=== PATIENT | female | born 1940 | race Caucasian/White ===

== ENCOUNTER → 2024-04-15 08:53 | Outpatient (REF) | payer MEDICARE, OTHER, SELFPAY | LOC: HWRCS 08:53 | PROVIDERS: ATTENDING PHYSICIAN Internal Medicine Interventional Cardiology; FAMILY PHYSICIAN Internal Medicine | DX: I35.0 Nonrheumatic aortic (valve) stenosis (principal) | CPT/HCPCS: 93306 ==

== ENCOUNTER 2024-05-02 06:08 | Inpatient (IN) | payer MEDICARE, OTHER, SELFPAY ==
[2024-04-18 11:39] LABS: Hematocrit 40.4 % (37.0-47.0); Hemoglobin 13.1 g/dL (12.0-16.0); Mean Corp Hgb Conc. 32.4 g/dL (33.0-37.0); Mean Corpuscular Hgb 31.7 pg (27.0-31.0); Mean Corpuscular Volume 97.8 fL (81.0-99.0); Mean Platelet Volume 9.9 fL (7.4-10.4); Platelet Count 370 10^3/uL (130-400); Red Blood Cell Count 4.13 10^6/uL (4.20-5.40); Red Cell Dist. Width 13.2 % (11.5-14.5); White Blood Cell Count 7.6 10^3/uL (4.8-10.8)
[2024-04-18 12:38] LABS: ALT (SGPT) 22 U/L (0-35); AST (SGOT) 20 U/L (14-36); Albumin 4.6 g/dl (3.5-5.0); Alkaline Phosphatase 108 U/L (38-126); Blood Urea Nitrogen 33 mg/dl (7-17); Calcium 9.8 mg/dl (8.4-10.2); Carbon Dioxide 26 mmol/L (22-30); Chloride 101 mmol/L (98-107); Glucose 78 mg/dl (70-99); Sodium 137 mmol/L (135-145); Total Bilirubin 0.6 mg/dl (0.2-1.3); eGFR 55.21
[2024-04-18 13:07] LABS: Glycohemoglobin (HgbA1c) 5.4 % (4.0-5.6)
[2024-04-18 14:23] VITALS: BMI 22.9
[2024-04-18 14:45] VITALS: BMI 22.9
--- NOTE | 2024-04-23 10:09 | VNURNOTE ---
Chart reviewed. Rec'ed update via T.T. from Chastity Persaud that patient will most likely need home PT, VN after DC. [facility] referral placed in [facility]. Patient will have a CM during hospital admission to further assess DC dispo. Liaison will
follow up after surgery.
[2024-05-02] VITALS (12 sets, daily range): BP systolic 121–173; BP diastolic 44–72; PULSE 57; O2SAT 91; BMI 22.9
[2024-05-02] MEDS: TYLENOL 650 MG PO ×4 (06:36→23:53)
[2024-05-02] MEDS: BACTROBAN NASAL 1 GRAM NASAL (06:38)
[2024-05-02] MEDS: CELEBREX 200 MG PO (06:40)
[2024-05-02] MEDS: NORMOSOL-R/PLASMALYTE-A 1000 IV ×2 (06:48→10:22)
--- NOTE | 2024-05-02 07:34 | PTCARENOTE ---
Patients upset that he was not brought in sooner. He was brought in at 0700 after RN was done getting patient ready. Patient had to go to the bathroom twice and that held up getting patient ready. Also MD had to be called back to julio
patient. Visitor told RN passing by that he wanted to come in but patients RN (Tracie) was already on the way out to bring him in. Will monitor patient.
[2024-05-02] MEDS: ROXICODONE 5 MG PO ×3 (09:33→22:07)
[2024-05-02] MEDS: IMDUR (EXTENDED RELEASE) PO (10:23)
[2024-05-02] MEDS: VITAMIN D3 (cholecalciferol) 25 MCG PO (10:44)
[2024-05-02] MEDS: SYNTHROID 125 MCG PO (10:44)
[2024-05-02] MEDS: CYMBALTA DELAYED RELEASE 60 MG PO (10:44)
[2024-05-02] MEDS: LAMICTAL 50 MG PO ×2 (10:45→16:11)
--- NOTE | 2024-05-02 12:07 | W.PN.ORTHO ---
Today's Communication / Plan
-
D/c when clinically stable.
Assessment
.
Distal Motor Intact: Yes
Dressing:
Clean, dry and intact.
Assessment:
L knee OA s/p L TKA w/ Dr Galeano 05/02/24
DVT prophylaxis - ASA, b/l venous foot pumps
HTN - + parameters - monitor BP
Non-obstructive CAD per cardiac cath 2018
Transient SVT during cath
- Monitor on tele
- Continue Verapamil
- Continue ASA but at 325 mg dosing x4 weeks for blood clot prevention
Asthma, mild and intermittent, and chronic BASS - monitor O2
- Resume inhaler
- IS
Mild renal insufficiency per pre-operative labs
Ulcerative colitis, in remission
- Minimize NSAIDs
Chronic constipation - add MOM HS to post-surgical bowel regimen of Colace and Senna
Ambulatory dysfunction with history of falls - on fall precautions
Dyslipidemia
First-degree AV block
Mild to moderate valvular disease with associated murmur
Venous varicosities
Remote migraines
Lumbar stenosis
Hypothyroidism
Skin cancer, status post excision
Anxiety
Depression
Osteopenia
Insomnia
Plan
.
Surgery / Date: L TKA w/ Dr Galeano 05/02/24
DVT Prophylaxis: Aspirin
Activity:
Out of bed.
PT/OT
Discharge Plan: Home w/ VN
Subjective
.
.:
Patient resting comfortably in bed.
L knee pain minimal at present.
Feels overall well. Denies new significant complaints.
Vital Signs and Labs
.
Vital Signs and Labs:
Lab Results
04/18/24 10:07
04/18/24 10:07
Temp Pulse Resp BP Pulse Ox
97.9 F 57 16 141/50 95
05/02/24 11:00 05/02/24 11:00 05/02/24 11:00 05/02/24 11:00 05/02/24 11:00
Physical Exam
-
HEENT: No pallor, cyanosis, or jaundice. Throat clear.
NECK: Supple. No JVD.
RESPIRATORY: Lungs clear to auscultation.
CVS: S1, S2 normal. RRR.
ABDOMEN: Soft, non-tender. No distension.
EXTREMITIES: Strength equal, no calf pain with palpation/dorsiflexion. Calves soft.
INDEPENDENT CROP CONSULTANT: AOx3. No focal deficits. enrobing machine operator grossly intact
[2024-05-02] MEDS: TYLENOL PO (12:30)
[2024-05-02] MEDS: ANCEF 5 IV ×2 (16:11→22:07)
[2024-05-02] MEDS: ASPIRIN 325 MG PO (16:55)
--- NOTE | 2024-05-02 18:59 | PTCARENOTE ---
Pt answered 'yes' to 'have you ever attempted suicide in your lifetime?' Stated she attempted in her 20s. All other questions were answered no. Dr. Galeano notified.
[2024-05-02] MEDS: BACTROBAN 2% OINTMENT 1 APPLIC NASAL (20:06)
[2024-05-02] MEDS: COLACE 100 MG PO (20:07)
[2024-05-02] MEDS: DECADRON 4 MG PO (20:07)
[2024-05-02] MEDS: SENOKOT 17.2 MG PO (20:07)
[2024-05-02] MEDS: KLONOPIN 0.5 MG PO (21:25)
[2024-05-02] MEDS: PEPCID 20 MG PO (21:25)
[2024-05-02] MEDS: MILK OF MAGNESIA 30 ML PO (21:26)
[2024-05-02] MEDS: LAMICTAL 300 MG PO (21:26)
[2024-05-02] MEDS: CYMBALTA DELAYED RELEASE 30 MG PO (21:26)
[2024-05-02] MEDS: CALAN EXTENDED RELEASE 360 MG PO (21:26)
[2024-05-03] VITALS (7 sets, daily range): BP systolic 119–141; BP diastolic 42–56; PULSE 63–67; O2SAT 92–93
[2024-05-03] MEDS: DILAUDID 0.5 MG IV (01:26)
[2024-05-03] MEDS: TYLENOL 650 MG PO ×2 (03:29→13:02)
[2024-05-03] MEDS: SYNTHROID 125 MCG PO (05:35)
--- NOTE | 2024-05-03 07:30 | W.PN.ORTHO ---
Today's Communication / Plan
-
Plan for discharge home today with VN and home PT
Assessment
.
Distal Motor Intact: Yes
Dressing:
Clean, dry and intact.
Assessment:
Doing well s/p LTKR
Plan
.
Surgery / Date: L TKA w/ Dr Galeano 05/02/24
DVT Prophylaxis: Aspirin
Activity:
Out of bed.
PT/OT
Discharge Plan: Home w/ VN
Subjective
.
.:
Patient resting comfortably. Working on ROM. Comfortable
Vital Signs and Labs
.
Vital Signs and Labs:
Lab Results
04/18/24 10:07
04/18/24 10:07
Temp Pulse Resp BP Pulse Ox
97.9 F 78 17 141/56 90
05/03/24 03:25 05/03/24 03:25 05/03/24 03:25 05/03/24 03:25 05/03/24 03:25
Non-invasive Hgb result: 13.2
Physical Exam
-
Pulm: nonlabored
CV: regular
Ext: Dressing changed and no active draiange. Calf soft. NVI distally. Able to fully extend and flex to 90 degrees.
--- NOTE | 2024-05-03 08:27 | W.PN.ORTHO ---
Today's Communication / Plan
-
Await PT and OT recs.
D/c later today if remaining clinically stable.
Pt would prefer VN services through [facility] if possible.
Assessment
.
Distal Motor Intact: Yes
Dressing:
Clean, dry and intact.
Assessment:
L knee OA s/p L TKA w/ Dr Galeano 05/02/24
DVT prophylaxis - ASA, b/l venous foot pumps
HTN - + parameters - BPs overall stable
Non-obstructive CAD per cardiac cath 2018
Transient SVT during cath
- Maintaining NSR on tele
- Continue Verapamil
- Continue ASA but at 325 mg dosing x4 weeks for blood clot prevention
Asthma, mild and intermittent, and chronic BASS - O2 stable on RA
- Resumed inhaler
- IS
Mild renal insufficiency per pre-operative labs
Ulcerative colitis, in remission
- Minimize NSAIDs
Chronic constipation - added MOM HS to post-surgical bowel regimen of Colace and Senna
Ambulatory dysfunction with history of falls - on fall precautions
Dyslipidemia
First-degree AV block
Mild to moderate valvular disease with associated murmur
Venous varicosities
Remote migraines
Lumbar stenosis
Hypothyroidism
Skin cancer, status post excision
Anxiety
Depression
Osteopenia
Insomnia
Plan
.
Surgery / Date: L TKA w/ Dr Galeano 05/02/24
DVT Prophylaxis: Aspirin
Activity:
Out of bed.
PT/OT
Discharge Plan: Home w/ VN
Subjective
.
.:
Patient resting comfortably in bed this AM.
L knee pain overall well controlled w/ current pain meds.
Denies any new significant complaints. Feels well.
Eager for potential d/c later today.
Vital Signs and Labs
.
Vital Signs and Labs:
Lab Results
04/18/24 10:07
04/18/24 10:07
Temp Pulse Resp BP Pulse Ox
98.1 F 70 16 129/55 96
05/03/24 07:51 05/03/24 07:51 05/03/24 07:51 05/03/24 07:51 05/03/24 07:51
Non-invasive Hgb result: 13.2
Physical Exam
-
HEENT: No pallor, cyanosis, or jaundice. Throat clear.
NECK: Supple. No JVD.
RESPIRATORY: Lungs clear to auscultation.
CVS: S1, S2 normal. RRR.�
ABDOMEN: Soft, non-tender. No distension.
EXTREMITIES: Strength equal, no calf pain with palpation/dorsiflexion. Calves soft.
BELT SPLICER: AOx3. No focal deficits. auto phone installer grossly intact
--- NOTE | 2024-05-03 08:34 | W.DS.TRANS ---
DC Summary - Watch [employer]
-
Discharge Instructions:
Sleep Apnea Risk Low
Discharge Diagnosis/Procedures L knee OA s/p L TKA w/ Dr Galeano 05/02/24
Diet Regular
Activity As tolerated,With Walker
Driving Restrictions Not until seen by your Dr
Bathing Restrictions OK to Shower
Other Services PT,VN
Wound Care Dressing to be removed 1 week post-surgery.
[place] to be removed 2 weeks at follow-up with
surgeon's office.
Instructions:
Stand-Alone Forms: Total Hip/Knee Replacement D/C
Changes to Home Medications: Yes
Discharge Medications:
DC Medications w/original date entered in [facility]
albuterol sulfate 90 mcg/actuation aerosol inhaler 2 puff inhalation 6XD PRN asthma 04/16/24
atorvastatin 20 mg tablet (Lipitor) 20 mg PO DAILY 04/16/24
biotin 1,000 mcg chewable tablet 1,000 mcg PO DAILY 04/16/24
cholecalciferol (vitamin D3) 25 mcg (1,000 unit) tablet (Vitamin D3) 25 mcg PO DAILY 04/16/24
clonazepam 0.5 mg tablet (Klonopin) 0.5 mg PO HS 04/16/24
duloxetine 30 mg capsule,delayed release (Cymbalta) 30 mg PO HS 04/16/24
duloxetine 60 mg capsule,delayed release (Cymbalta) 60 mg PO DAILY 04/16/24
lamotrigine 150 mg tablet (Lamictal) 300 mg PO HS 04/16/24
lamotrigine 25 mg tablet (Lamictal) 50 mg PO BID 04/16/24
levothyroxine 125 mcg tablet (Synthroid) 125 mcg PO DAILY 04/16/24
verapamil 360 mg 24 hr capsule,extended release 360 mg PO DAILY 04/16/24
mupirocin 2 % topical ointment 1 applic intranasal BID #1 tube 04/18/24
acetaminophen 500 mg tablet (Acetaminophen Extra Strength) 1,000 mg (2 x 500 mg) PO Q6H #60 tabs 05/02/24
aspirin 325 mg tablet 325 mg PO DAILY #30 tabs 05/02/24
dexamethasone 4 mg tablet 4 mg PO BID #5 tabs 05/02/24
docusate sodium 100 mg capsule 100 mg PO BID #30 caps 05/02/24
famotidine 20 mg tablet 20 mg PO HS #30 tabs 05/02/24
isosorbide mononitrate 30 mg tablet,extended release 24 hr 30 mg PO DAILY #30 tabs 05/02/24
lisinopril 10 mg tablet 10 mg PO DAILY #1 tab 05/02/24
magnesium hydroxide 400 mg/5 mL oral suspension (Milk of Magnesia) 30 ml PO HS #3,780 mL 05/02/24
ondansetron HCl 4 mg tablet 4 mg PO Q6H PRN nausea and vomiting #30 tabs 05/02/24
oxycodone 5 mg tablet 5 - 10 mg (1 - 2 x 5 mg) PO Q6H PRN moderate-severe pain #30 tabs 05/02/24
sennosides 8.6 mg tablet (Tracey-bjorn) 17.2 mg (2 x 8.6 mg) PO BID #30 tabs 05/02/24
Home Medication Changes
acetaminophen 500 mg tablet (Acetaminophen Extra Strength) 1,000 mg (2 x 500 mg) PO Q6H #60 tabs 05/02/24
aspirin 325 mg tablet 325 mg PO DAILY #30 tabs 05/02/24
dexamethasone 4 mg tablet 4 mg PO BID #5 tabs 05/02/24
docusate sodium 100 mg capsule 100 mg PO BID #30 caps 05/02/24
famotidine 20 mg tablet 20 mg PO HS #30 tabs 05/02/24
magnesium hydroxide 400 mg/5 mL oral suspension (Milk of Magnesia) 30 ml PO HS #3,780 mL 05/02/24
ondansetron HCl 4 mg tablet 4 mg PO Q6H PRN nausea and vomiting #30 tabs 05/02/24
oxycodone 5 mg tablet 5 - 10 mg (1 - 2 x 5 mg) PO Q6H PRN moderate-severe pain #30 tabs 05/02/24
sennosides 8.6 mg tablet (Tracey-bjorn) 17.2 mg (2 x 8.6 mg) PO BID #30 tabs 05/02/24
Pending Results: No
[2024-05-03] MEDS: TYLENOL PO (08:59)
[2024-05-03] MEDS: DECADRON 4 MG PO (08:59)
[2024-05-03] MEDS: LAMICTAL 50 MG PO (08:59)
[2024-05-03] MEDS: ASPIRIN 325 MG PO (08:59)
[2024-05-03] MEDS: VITAMIN D3 (cholecalciferol) 25 MCG PO (09:00)
[2024-05-03] MEDS: SENOKOT 17.2 MG PO (09:00)
[2024-05-03] MEDS: ROXICODONE 5 MG PO (09:00)
[2024-05-03] MEDS: IMDUR (EXTENDED RELEASE) 30 MG PO (09:01)
[2024-05-03] MEDS: LIPITOR 20 MG PO (09:02)
[2024-05-03] MEDS: CYMBALTA DELAYED RELEASE 60 MG PO (09:02)
[2024-05-03] MEDS: COLACE 100 MG PO (09:03)
[2024-05-03] MEDS: BACTROBAN 2% OINTMENT 1 APPLIC NASAL (09:03)
--- NOTE | 2024-05-03 09:25 | CM ---
Addendum entered by Oksana Eid RN 05/03/24 09:51:
Correction: Home with [facility] VN.

Original Note:
Reviewed the chart notes and spoke with the patient at the bedside. IMM reviewed. The patient resides with spouse in a one story home with no steps to enter. The patient has a rolling walker, shower seat, shower rails, and a cane. The patient
reports no VN or SNF in past. The patient confirmed her [facility] choice [facility]. CM continues to be available to patient/family and is monitoring medical plan for needs at discharge.
Plan: Discharge to home with VN services. Patient's spouse to provide transportation.
--- NOTE | 2024-05-03 09:54 | VNURNOTE ---
[facility]OS[facility] liaison met with patient at bedside. She requested home PT with [facility]. She stated she arranged to have someone stay overnight with her once she is DC'ed. DOMINIQUE Tina notified of [facility] request.
--- NOTE | 2024-05-03 12:45 | PTCARENOTE ---
drowsy after this Am 2.5mg Oxycodone, needs cue for ADLs/RW. YARD SPOTTER was notified via PT after a discussion of pt status and suggestion of med change. IV bolus ordered.
[2024-05-03] MEDS: LAMICTAL 25 MG PO (13:01)
[2024-05-03] MEDS: NSS 250 IV (13:02)
--- NOTE | 2024-05-03 14:54 | W.PN.UPDATE ---
Update Note
Progress Note Update
Received word from PT earlier today that patient was groggy and needed a lot of repetition.
This was surprising considering how well she looked earlier when I assessed her this morning.
Grogginess likely 2* Oxycodone, Lamictal, and Cymbalta all taken together around 9 AM with lack of sleep overnight.
Pt was provided w/ a 250 cc NS bolus over 1 hour to flush out medications. Oxycodone was also switched to Tramadol as needed.
With these interventions, grogginess did improve. PT noted she was much more alert during her afternoon session.
Spoke to patient on phone who now feels comfortable w/ d/c today.
D/c today to home w/ [facility] VN services.
== END 2024-05-03 16:16 | disposition home health service (06) | DRG 470 ==
LOC: 2 SOUTH 06:08
PROVIDERS: ADMITTING PHYSICIAN Orthopaedic Surgery; FAMILY PHYSICIAN Internal Medicine; REFERRING PHYSICIAN Internal Medicine Interventional Cardiology
PROC: 0SRD0J9 Replacement of Left Knee Joint with Synthetic Substitute, Cemented, Open Approach (ICD-10-PCS; 2024-05-02)
DX: M17.12 Unilateral primary osteoarthritis, left knee (principal); I10 Essential (primary) hypertension; I25.10 Atherosclerotic heart disease of native coronary artery without angina pectoris; I35.1 Nonrheumatic aortic (valve) insufficiency; E78.5 Hyperlipidemia, unspecified; E03.9 Hypothyroidism, unspecified; F41.9 Anxiety disorder, unspecified; F32.A Depression, unspecified; I35.0 Nonrheumatic aortic (valve) stenosis; J45.20 Mild intermittent asthma, uncomplicated; K59.09 Other constipation; I44.0 Atrioventricular block, first degree; G47.00 Insomnia, unspecified; M85.80 Other specified disorders of bone density and structure, unspecified site; N28.9 Disorder of kidney and ureter, unspecified; Z79.82 Long term (current) use of aspirin; Z79.890 Hormone replacement therapy; Z79.899 Other long term (current) drug therapy; Z88.0 Allergy status to penicillin
CPT/HCPCS: 36415; 73560; 80053; 83036; 85027; 87070; 97110; 97116; 97162; 97167; 97535; C1713; C1776

== ENCOUNTER 2024-05-13 21:00 | Observation (INO) | payer MEDICARE, OTHER, SELFPAY ==
[2024-05-13 14:39] VITALS: BP 145/58
[2024-05-13 15:07] LABS: % Basophils 0.5 % (0-2); % Eosinophils 1.9 % (0-6); % Immature Granulocytes 0.9 % (0-0.5); % Lymphocytes 12.5 % (20.5-51.1); % Monocytes 17.7 % (1.7-9.3); % Neutrophils 66.5 % (42.2-75.2); Absolute Basophils 0.1 10^3/uL (0-0.2); Absolute Eosinophils 0.2 10^3/uL (0-0.7); Absolute Immature Granulocytes 0.1 10^3/uL (0-0.05); Absolute Lymphocytes 1.5 10^3/uL (1.2-3.4); Absolute Monocytes 2.1 10^3/uL (0.1-0.6); Absolute Neutrophils 7.9 10^3/uL (1.4-6.5); Hematocrit 35.7 % (37.0-47.0); Hemoglobin 11.8 g/dL (12.0-16.0); Mean Corp Hgb Conc. 33.1 g/dL (33.0-37.0); Mean Corpuscular Hgb 32.2 pg (27.0-31.0); Mean Corpuscular Volume 97.3 fL (81.0-99.0); Mean Platelet Volume 8.8 fL (7.4-10.4); Nucleated Red Blood Cells % 0 %; Platelet Count 378 10^3/uL (130-400); Red Blood Cell Count 3.67 10^6/uL (4.20-5.40); Red Cell Dist. Width 13.5 % (11.5-14.5); White Blood Cell Count 11.9 10^3/uL (4.8-10.8)
[2024-05-13 15:19] LABS: ALT (SGPT) 23 U/L (0-35); AST (SGOT) 20 U/L (14-36); Albumin 3.7 g/dl (3.5-5.0); Alkaline Phosphatase 124 U/L (38-126); Blood Urea Nitrogen 27 mg/dl (7-17); Calcium 9.6 mg/dl (8.4-10.2); Carbon Dioxide 28 mmol/L (22-30); Chloride 104 mmol/L (98-107); Glucose 113 mg/dl (70-99); Potassium 4.9 mmol/L (3.5-5.1); Sodium 138 mmol/L (135-145); Total Bilirubin 0.5 mg/dl (0.2-1.3); Total Protein 6.4 g/dl (6.3-8.2); eGFR > 60.00
--- NOTE | 2024-05-13 16:57 | ED.GENMED ---
History of Present Illness
General
Chief Complaint: Post Operative Problem(s)
Source: patient and spouse
Exam Limitations: none
Time Seen by Provider: 05/13/24 16:42
Nursing documentation reviewed up to this point in time: agreed with
History of Present Illness
History of Present Illness:
84-year-old female presents emergency department complaining of left knee pain after knee replaced by Dr. Galeano on 05/03/2024. She states she called the office, and did not speak to anyone, so she came to the emergency department. She denies any
increased swelling, does states she has pain in her knee.
Past History
Past History
ED Past Medical History: Asthma, HTN, Hypothyroidism, Psychiatric (Anxiety, depression) and Other (MigrainesUTI)
ED Past Surgical History: Cardiac (neg cath 2019 for sig CAD) and Orthopedic (Left knee meniscus , Bunionectomy, Hammertoe repair)
Social History
Tobacco: Non-smoker
Alcohol: None
Drug: None
Personal:
Living: with family
Employment: Retired
Family History
Family History: Hypertension
Review of Systems
Review of Systems
Allergies reviewed?: Yes
All Other Systems: Not applicable
Constitutional: Reports no symptoms
EENT: Reports no symptoms
Respiratory: Reports no symptoms
Cardiac: Reports no symptoms
ABD/GI: Reports no symptoms
: Reports no symptoms
Musculoskeletal: Reports joint pain
Skin: Reports no symptoms
Neurological: Reports no symptoms
Endocrine: Reports no symptoms
Hematologic/Lymphatic: Reports no symptoms
Psychiatric: Reports no symptoms
Phy Exam
Physical Exam
Physical Exam:
Physical Exam
General: no apparent distress, not acutely ill
Neck: supple. no meningeal signs. normal posterior pharynx
Heart: s1/s2 regular rate and rhythm, no murmur. equal radial
pulses.
HEENT: Pupils equal round reactive to light, EOMI
Lungs: no acute respiratory distress. clear bilaterally
Abdomen: normal bowel sounds. not tender. no CVAT
Neuro: alert and oriented. no focal neurological deficits cranial nerves II through XII intact
Skin: no rash, wound clean dry and intact left knee, mild edema
Psychiatric: well kept. interactive and cooperative
Extremities: no edema. no calf tenderness. negative homans. good distal pulses
Course
Orders/Labs/Results
Orders:
Orders
05/13/24 14:17
Iohexol [Omnipaque] See Protocol PO NOW STA
05/13/24 14:42
Periph Venous Lwr Ext Left US [US Periph Venous LOWER Ext LT] Urgent
Comment: s/p knee replacement
Reason For Exam: swelling, increasing pain
05/13/24 14:59
Complete Blood Count/With Diff Urgent
Comprehensive Metabolic Panel Urgent
05/13/24 Dinner
Cholesterol Lowering
At Your Request: Full Participation
Cholesterol Lowering: Sodium, 2 Gram
05/13/24 17:02
CR Knee - Left 4 Or More View* Urgent
Comment:
Reason For Exam: left knee pain s/p replacement
05/13/24 19:16
IV Insert/Care/Rem.- Treatment PRN
Morphine Sulfate 2 mg IV NOW STA
05/13/24 20:12
Admit/Transfer Patient As Directed
Co-Sign Provider:
Level of Care: Observation services
Assign to:: Medical/Surgical
Physician / Group: Nell Fairchild
Diagnosis: left fibular head nondisplaced fracture
PRN Pain Medication Management As Directed
May give lesser potent ordered pain med per pt: Yes
preference::
Protocol:: Medication orders for pain may be administered in a
manner that supports deferring to patient preference
when the pt is:
- Requesting an ordered lesser potent pain medication.
Least to most potent pain medications are defined
as: acetaminophen < NSAID < tramadol < opioids
(morphine, oxycodone, hydromorphone).
- Requesting a lesser dose of the same medication IF
ORDERED.
- Requesting a less intrusive route of administration
if both routes are prescribed by the provider (PO <
IV).
05/13/24 20:14
Code Status As Directed
Resuscitation Status: Full Code
05/13/24 21:50
Acetaminophen [Tylenol] 650 mg PO Q4HPRN PRN
Albuterol [ProAIR HFA INHALER] 2 puff INH R Q6HPRN PRN
Morphine Sulfate 2 mg IV Q4HPRN PRN
Oxycodone [Roxicodone] 5 mg PO Q4HPRN PRN
05/13/24 21:50
Case Management Consult ONCE
Case Management Consult: Discharge Planning
ORTHOPEDIC CONSULT Routine
Consulting Provider: Frederick Foreman
Was physician already notified: Yes
Activity As Directed
Activity Level: Out of Bed-Early Mobility
Pneumatic Compression Sleeves As Directed
Type: Knee high
Vital Signs As Directed
Frequency: Per unit guidelines
Weight As Directed
Frequency: Once
Comment: on admission
Pt Eval And Treat Routine
Activity Level: Out of Bed-Early Mobility
DX Deep Vein Thrombosis Video Routine
05/13/24 22:00
Clonazepam [Klonopin] 0.5 mg PO HS
Docusate Sodium [Colace] 200 mg PO HS
Duloxetine Delayed Release [Cymbalta Delayed Release] 30 mg PO HS
Lamotrigine [Lamictal] 300 mg PO HS
Sennosides [Senokot] 17.2 mg PO HS
magnesium citrate 200 mg PO HS
05/14/24 06:00
Complete Blood Count/No Diff IN AM
Levothyroxine [Synthroid] 125 mcg PO DAILY @ 0600
05/14/24 08:00
Aspirin Low Dose EC [Aspir Low (Enteric Coated)] 81 mg PO DAILY
Atorvastatin [Lipitor] 20 mg PO DAILY
Duloxetine Delayed Release [Cymbalta Delayed Release] 60 mg PO DAILY
ISOSORBIDE MONOnitrate ER [Imdur (Extended Release)] 30 mg PO DAILY
Lamotrigine [Lamictal] 50 mg PO BID AT 0800,1700
Lisinopril [Zestril] 10 mg PO DAILY
Verapamil Extended Release [Calan Extended Release] 360 mg PO DAILY
Abnormal Lab Results
05/13/24
14:59
WBC 11.9 H 10^3/uL
(4.8-10.8)
RBC 3.67 L 10^6/uL
(4.20-5.40)
Hgb 11.8 L g/dL
(12.0-16.0)
Hct 35.7 L %
(37.0-47.0)
MCH 32.2 H pg
(27.0-31.0)
Abs Immat Gran (auto) 0.1 H 10^3/uL
(0-0.05)
Absolute Neuts (auto) 7.9 H 10^3/uL
(1.4-6.5)
Absolute Monos (auto) 2.1 H 10^3/uL
(0.1-0.6)
Immature Gran % 0.9 H %
(0-0.5)
Lymphocytes % 12.5 L %
(20.5-51.1)
Monocytes % 17.7 H %
(1.7-9.3)
BUN 27 H mg/dl
(7-17)
Glucose 113 H mg/dl
(70-99)
05/13/24 14:59
05/13/24 14:59
Vital Signs
Initial and Last Documented VS:
Initial Vital Signs
Temp Pulse Resp BP Pulse Ox
98.5 F 79 20 145/58 96
05/13/24 14:39 05/13/24 14:39 05/13/24 14:39 05/13/24 14:39 05/13/24 14:39
Last Documented Vital Signs
Temp Pulse Resp BP Pulse Ox
98.5 F 82 16 145/53 94
05/13/24 14:39 05/13/24 19:54 05/13/24 19:54 05/13/24 19:54 05/13/24 19:54
MDM/Problems Addressed
Differential Diagnosis Includes:
Knee fracture, DVT, postop infection
MDM/Problems Addressed:
84-year-old female with ambulatory dysfunction, knee pain postoperative. No signs of DVT, patient unable to ambulate. Will admit for. Further management.
*Radiology
Radiology exam reviewed: radiology read reviewed (Ultrasound left lower extremity no DVT, knee x-ray shows fibular head fracture, likely old)
*Pulse Oximetry
Patient hypoxic: no
*Front End Web Designer Interpretation
Rate: Front End Web Designer- N/A
*Critical Care Note
Total Time (30-74mins, 75-104mins- exclusive of procedures): Not Applicable
Data Reviewed
Review of Other/Old Records Reveals: Operative Reports (Left knee replacement by Dr. Galeano, 05/03/24)
Source: records
Patient Management
Social determinants of health affecting care: Living situation
Discussion with other providers: Hospitalist
ED Attending Note
-
Portions of this chart may have been created with voice recognition software.� Occasional wrong word or��sound alike� substitutions may have occurred due to the inherent limitations of voice recognition software.
Discharge Plan
Departure
Patient Disposition: Admit
Date of Disposition: 05/13/24
Time of Disposition: 19:16
Presentation/result/management discussed w/ accepting MD/DO: Hospitalist
Patient with high blood pressure during this ER visit?: Yes
Condition: Good
Discharge Problem:
Acute postoperative pain of left knee, Closed fracture of head of left fibula
Interventions
Interventions:
*Risk Screen - Suicide Last Done: 05/13/24 17:57
*General Assessment Last Done: 05/13/24 14:45
*Neglect/Abuse Screening Last Done: 05/13/24 14:45
*ED- Fall Risk Assessment Last Done: 05/13/24 22:02
*ED COVID-19 Vaccine History Last Done: 05/13/24 17:57
*Nursing Disposition Last Done: 05/13/24 22:02
ED-Skin Assessment Last Done: 05/13/24 17:57
Discharge Date and Time
Discharge Date/Time: 05/13/24 22:03
--- NOTE | 2024-05-13 19:28 | HPS.HSE ---
Family Physician
-
Family Physician: Jero Frazier
Chief Complaint
-
left knee pain
History of Present Illness
Patient is a 84-year-old female with past medical history significant for essential hypertension, hyperlipidemia, hypothyroidism and depression/anxiety who presented to [facility] ED for evaluation of continued left knee pain s/p TKA with
Dr. Galeano on 05/02/2024. Patient reports doing well post surgery with home therapy and able to ambulate with walker. She reports that on Monday she was moving around like normal, went to bed and when she got up Monday she could not bear weight on
the left knee. This morning when she got up she felt it was even worse than yesterday so had her call 911 for EMS to transport her to hospital. Patient denies any fever, chills, cough, shortness of breath, chest pain, nausea, vomiting,
constipation, diarrhea or urinary symptoms.
Medical History
Past Medical History
Past Medical History: Reports Other
Additional Past Medical History:
essential hypertension
hyperlipidemia
hypothyroidism
depression/anxiety
osteoarthritis
Past Surgical History: Reports Other
Additional Past Surgical History:
Left Knee Scope 11/08/17
L foot bunionectomy including hammer toes
L knee OA s/p L TKA w/ Dr Galeano 05/02/24
Social History
Tobacco: Non-smoker
Alcohol: None
Drug: None
Personal:
Living: With Family
Family History
Family History: Other (Mother: CAD; Father: CVA )
Allergies / Home Medications
Allergies reflects when Allergies were last updated in [facility].
Home Medications with original date entered in [facility]
Allergy/Medication List:
Allergies
Allergy/AdvReac Type Severity Reaction Status Date / Time
gluten Allergy GI issues Verified 05/13/24 14:41
lactose Allergy GI issues Verified 05/13/24 14:41
linaclotide [From Linzess] Allergy Shortness Verified 05/13/24 14:41
of Breath
Penicillins Allergy Rash Verified 05/13/24 14:41
soy Allergy GI issues Verified 05/13/24 14:41
Home Medications
albuterol sulfate 90 mcg/actuation aerosol inhaler 2 puff inhalation R Q6HPRN PRN asthma 04/16/24
atorvastatin 20 mg tablet (Lipitor) 20 mg PO DAILY High Cholesterol 04/16/24
duloxetine 30 mg capsule,delayed release (Cymbalta) 30 mg PO HS Mental Health/Anxiety 04/16/24
duloxetine 60 mg capsule,delayed release (Cymbalta) 60 mg PO DAILY Mental Health/Anxiety 04/16/24
lamotrigine 150 mg tablet (Lamictal) 300 mg PO HS Mental Health/Anxiety 04/16/24
lamotrigine 25 mg tablet (Lamictal) 50 mg PO BID 04/16/24
levothyroxine 125 mcg tablet (Synthroid) 125 mcg PO DAILY 04/16/24
verapamil 360 mg 24 hr capsule,extended release 360 mg PO DAILY 04/16/24
isosorbide mononitrate 30 mg tablet,extended release 24 hr 30 mg PO DAILY #30 tabs 05/02/24
lisinopril 10 mg tablet 10 mg PO DAILY #1 tab 05/02/24
aspirin 81 mg tablet,delayed release 81 mg PO DAILY 05/13/24
clonazepam 1 mg tablet 0.5 mg PO HS 05/13/24
docusate sodium 100 mg capsule 200 mg PO HS 05/13/24
ibuprofen 200 mg tablet (Advil) 400 mg PO Q6HPRN PRN mild pain 05/13/24
magnesium citrate 100 mg capsule 200 mg PO HS 05/13/24
magnesium hydroxide 400 mg/5 mL oral suspension (Milk of Magnesia) 15 ml PO HS 05/13/24
oxycodone 5 mg tablet 5 mg PO Q6HPRN PRN severe pain 05/13/24
sennosides 8.6 mg tablet (Tracey-bjorn) 17.2 mg PO HS 05/13/24
Review of Systems
-
History Source: Patient
Constitutional: Reports No Symptoms
EENT: Reports No Symptoms
Respiratory: Reports No Symptoms
Cardiac: Reports No Symptoms
Abdomen/GI: Reports No Symptoms
: Reports No Symptoms
Musculoskeletal: Reports Joint Pain (left knee) and Joint Swelling (left knee )
Skin: Reports No Symptoms
Neurological: Reports No Symptoms
Endocrine: Reports No Symptoms
Hematologic/Lymphatic: Reports No Symptoms
Psych: Reports No Symptoms
Physical Exam
Vital Signs
Vital Signs
Temp Pulse Resp BP Pulse Ox
98.5 F 79 20 145/58 96
05/13/24 14:39 05/13/24 14:39 05/13/24 14:39 05/13/24 14:39 05/13/24 14:39
Physical Exam
General: Well Developed, Well Nourished, No Apparent Distress, Comfortable and Conversant
HEENT: NormoCephalic, Moist mucous membranes, Atraumatic, [place] Conjunctivae, Nose Appears Normal and Ears Appear Normal
Respiratory: Clear
Cardiac: S1/S2, Regular Rhythm and Murmur
Breast: Deferred by me
GI: Soft, Non Tender, Non Distended and Normal Bowel Sounds; No Organomegaly
Rectal: Deferred by Provider
Genito-urinary: Deferred by me
Musculoskeletal: No Clubbing, No Cyanosis, Edema, Left Lower Extremity (Left knee, recent TKA 05/02/2024, incision site is well approximated, minimal erythema and edema present) and No Edema
Skin: No Rash
Neuro: Awake, Alert, AO x 3 and Nonfocal/grossly intact
Psych: Calm and Intact Judgment/Insight
Laboratory Results
-
05/13/24 14:59
05/13/24 14:59
Laboratory Results
Total Bilirubin 0.5 mg/dl (0.2-1.3) 05/13/24 14:59
AST 20 U/L (14-36) 05/13/24 14:59
ALT 23 U/L (0-35) 05/13/24 14:59
Alkaline Phosphatase 124 U/L (38-126) 05/13/24 14:59
Data Reviewed
-
Diagnostic Radiology: Report Reviewed by me (Lt Knee: Status post left total knee replacement which appears in satisfactory position. Subtle lucency involving the left fibular head, suggesting nondisplaced fracture. Subcutaneous edema is present.)
Ultrasound: Report Reviewed by me (LLE: No sonographic evidence for LEFT lower extremity deep venous thrombosis)
Lab Data: Labs Reviewed by me (WBC 11.9, Neut 66.5, )
Impression/Plan
-
IMPRESSION/PLAN:
#left fibular head nondisplaced fracture
#osteoarthritis
s/p Left knee TKA with Dr. Galeano 05/02/2024
Lf Knee x-ray: Status post left total knee replacement which appears in satisfactory position.
Subtle lucency involving the left fibular head, suggesting nondisplaced fracture.
Subcutaneous edema is present.
LLE US: No sonographic evidence for LEFT lower extremity deep venous thrombosis.
- Admit to med/surg
- Consult Ortho
- pain management
- Consult PT
- Consult case management
#essential hypertension
- continue lisinopril and verapamil
#hyperlipidemia
- continue aspirin and atorvastatin
#hypothyroidism
- continue levothyroxine
#depression/anxiety
- continue Cymbalta, clonazepam and lamotrigine
Code status: full code
DVT prophylaxis: SCDs
[2024-05-13 19:54] VITALS: BP 145/53
[2024-05-13] MEDS: MORPHINE SULFATE 2 MG IV (19:55)
[2024-05-13 19:57] VITALS: BMI 25.8
--- NOTE | 2024-05-13 19:59 | EDRN ---
Report received introduced myself to patient and , hospitalist at bedside working on admission orders, patient was pulled up in bed and medicated for pain as well at this time, patient aware of process of being admitted, call simms in reach,
will continue to monitor.
--- NOTE | 2024-05-13 20:18 | W.PN.UPDATE ---
Update Note
Progress Note Update
Patient seen in conjunction with STARLA. I agree with the findings and physical. I concur with assessment and plan.
Patient is a 84-year-old female with past medical history segment for hypertension, hypothyroid, CAD and recent left total knee arthroplasty on 320 who presents to the emergency department with a 1 day history of left knee pain. Patient reports
acute onset of the pain last night. She reports the pain started just above the knee radiating to the middle of the knee and then down the legs. She reports that sharp pain. She denied any changes in swelling. She denies any fevers or chills at
home. She denied any evidence of dehiscence, leakage or purulent discharge. She denies any falls or injuries.
The emergency department she was afebrile with a temp of 98.5, blood pressure 145/60 with a pulse of 82 satting 94% on room air. She had x-ray of the left knee which shows a normal-appearing total knee arthroplasty however the left fibula appears
to have small lucency which could be consistent with a nondisplaced fracture.
On my examination of the knee it appears to be appropriate for postoperative changes. No dehiscence, no swelling erythema or warmth consistent with an acute joint infection. She has no signs of external trauma.
Assessment and plan
84-year-old status post left total knee arthroplasty coming with left knee pain found to have radiolucent head of fibula area on x-ray that is consistent with a nondisplaced fracture.
�Admit to MedSurg observation
�Ortho consult
�Pain control
�PT evaluation and case management
- DVT prophylaxis
CODE STATUS�full code
[2024-05-13 21:43] VITALS: BMI 24.6
--- NOTE | 2024-05-13 22:00 | TRANSFER ---
Received pt from ED via stretcher at 2150 w dx of L fibular head nondisplaced fracture. Left knee TKA 05/02/24 w xiao intact, +2 to LLE - bruising and redness noted. + pedal pulses bilaterally. Pt able to wiggles toes of left foot, unable to move
left leg d/t pain. VS WNL, Assessment as documented.
[2024-05-13 22:10] VITALS: BP 153/61
[2024-05-13 22:43] VITALS: BP 153/61; BMI 24.6
[2024-05-13] MEDS: KLONOPIN 0.5 MG PO (23:13)
[2024-05-13] MEDS: LAMICTAL 300 MG PO (23:13)
[2024-05-13] MEDS: CYMBALTA DELAYED RELEASE 30 MG PO (23:13)
[2024-05-13] MEDS: COLACE 200 MG PO (23:14)
[2024-05-13] MEDS: SENOKOT 17.2 MG PO (23:14)
[2024-05-13] MEDS: ROXICODONE 5 MG PO (23:14)
[2024-05-14] MEDS: MORPHINE SULFATE 2 MG IV (03:07)
[2024-05-14] MEDS: SYNTHROID 125 MCG PO (06:20)
--- NOTE | 2024-05-14 07:22 | W.PN.UPDATE ---
Addendum entered and electronically signed by Frederick Foreman MD 05/15/24 08:04:
I evaluated the patient at bedside 05/14/2024. She is resting comfortably in bed. She reports having increased activity with physical therapy and developed pain in the anterior compartment after this. She denies direct trauma. No pain over the
lateral aspect. She was admitted for pain control and evaluation for SNF placement.
On exam the left lower extremity has well approximated healing incision without signs of infection. There is appropriate local ecchymosis. Patient has pain with terminal extension. There is mild discomfort about the fibular head and more
generally about the knee. No instability to varus and valgus stress. Motor and sensation intact distally.
84-year-old female with anterior thigh pain 12 days after left knee replacement with Dr. Galeano. I reviewed her x-rays which show well-fixed well aligned components. There is a lucency about the fibular head which may be consistent with a capsular
avulsion. The patient had a markedly valgus knee preoperatively which leads to a tight lateral capsule. She has no instability. This is likely not the source of her pain. Her anterior compartment pain is likely secondary to her increased
physical activity. We discussed pain control techniques. All questions were answered. She may follow-up as scheduled on May 17 for evaluation of her incision and staple removal.
Original Note:
Update Note
Progress Note Update
84-year-old female 12 days s/p left total knee replacement performed on 05/02/2024 under the direction of Dr. Galeano. Readmitted to yesterday evening due to acute onset of left knee pain. Initially post-operatively, she reports that she was
progressing well. She reports developing increased pain and difficulty weightbearing Monday night, prompting evaluation in ED yesterday evening with subsequent admission. She denies any known injuries or falls. She denies any fevers, chills or
night sweats. She denies any incisional drainage. She reports pain about the anterior knee radiating to the medial aspect of the knee and then down her leg. She denies any increased swelling.
X-rays performed of the left knee show a well-positioned left total knee arthroplasty. There is a subtle lucency extending through the superolateral aspect of the left fibular head, suspicious for a nondisplaced fracture. This also appears evident
on post-operative films obtained on 05/02/2024. Ultrasound negative for DVT.
Physical examination of the left knee reveals a well-approximated surgical incision overlying the anterior knee without any evidence for active drainage. Skin clips intact. Mild staple erythema noted about the proximal and distal aspects of the
incision. No significant effusion. No significant or reproducible tenderness to palpation over the fibular head. ROM restricted secondary to pain and muscular tightness; shy of terminal extension to approximately 90 degrees of flexion. Calf is
soft and nontender to palpation. Able to plantarflex and dorsiflex left ankle. NVI distally.
Recommend pain control per primary team. May consider incorporation of a muscle relaxer as needed. Skin clip removal at 2 weeks post-op. PT/OT as tolerated. Ice therapy and elevation for edema control. Aspirin for DVT prophylaxis. Orthopedic
surgery will continue to follow.
[2024-05-14 07:40] VITALS: BP 165/60
--- NOTE | 2024-05-14 08:02 | W.PN.HOSP.TC ---
Today's Communication/Plan
-
see plan
Assessment / Plan
Assessment / Plan
Gen: NAD, AAOx3.
Eyes: EOMI, PERRLA, no scleral icterus.
Neck: supple.
CV: RRR, +S1/S2, no m/r/g.
Resp: CTAB, no rales, wheezes, or rhonchi.
Abd: +BS, soft, NT, ND
Skin: No rashes.
MSK: L knee with soft tissue edema and ecchymoses. Operative incision with xiao in place and no discharge.
Neuro: CN 2-12 intact, non-focal.
Psych: Normal mood and affect.
L Knee x-ray: Status post left total knee replacement which appears in satisfactory position. Subtle lucency involving the left fibular head, suggesting nondisplaced fracture. Subcutaneous edema is present.
LLE US: No sonographic evidence for LEFT lower extremity deep venous thrombosis.
L fibular head nondisplaced fracture:
-underlying OA
-s/p Left knee TKA with Dr. Galeano 05/02/2024
-ortho following, recs ice/elevation/pain control
-PT/OT/CM
Other problems:
Essential hypertension: continue lisinopril and verapamil
Hyperlipidemia: Cont statin
Hypothyroidism: continue levothyroxine
Depression/anxiety: continue Cymbalta, clonazepam and lamotrigine
FULL/Lovenox
Anticipated Discharge: Within 24 hours
Subjective/Interval History
-
Date of Service: May 14, 2024
No new complaints.
Objective Data
-
Labs:
Laboratory Results
05/14/24
06:35
WBC Pending
Hgb Pending
Hct Pending
Plt Count Pending
Vital Signs:
Vital Signs
Temp Pulse Resp BP Pulse Ox
99 F 76 18 153/61 93
05/14/24 03:00 05/13/24 22:10 05/13/24 22:10 05/13/24 22:10 05/13/24 22:10
I&O
05/13/24 05/14/24 05/15/24
06:59 06:59 06:59
Output Total 650 / 650
Balance -650 / -650
[2024-05-14 08:09] LABS: Hematocrit 34.3 % (37.0-47.0); Hemoglobin 11.5 g/dL (12.0-16.0); Mean Corp Hgb Conc. 33.5 g/dL (33.0-37.0); Mean Corpuscular Hgb 32.4 pg (27.0-31.0); Mean Corpuscular Volume 96.6 fL (81.0-99.0); Mean Platelet Volume 9.4 fL (7.4-10.4); Platelet Count 390 10^3/uL (130-400); Red Blood Cell Count 3.55 10^6/uL (4.20-5.40); Red Cell Dist. Width 13.5 % (11.5-14.5)
[2024-05-14] MEDS: IMDUR (EXTENDED RELEASE) 30 MG PO (08:48)
[2024-05-14] MEDS: CYMBALTA DELAYED RELEASE 60 MG PO (08:48)
[2024-05-14] MEDS: LIPITOR 20 MG PO (08:48)
[2024-05-14] MEDS: LAMICTAL 50 MG PO ×2 (08:48→16:32)
[2024-05-14] MEDS: CALAN EXTENDED RELEASE 360 MG PO (08:49)
[2024-05-14] MEDS: ZESTRIL 10 MG PO (08:50)
[2024-05-14] MEDS: ROXICODONE 5 MG PO ×2 (08:52→22:22)
--- NOTE | 2024-05-14 14:08 | CM ---
Reviewed the chart notes and spoke with the patient at the bedside. The patient is admitted under observational status. The ROBERTSON letter was provided and explained. The patient had no questions with regards to the letter.
The patient resides with her spouse in a one story home with no steps to enter. The patient has a rolling walker, shower seat, cane, and shower rail. The patient is current with [facility], but no SNF in the past. The patient confirmed her
pharmacy of choice is the [facility]. PT/OT evaluations pending. CM continues to be available to patient/family and is monitoring medical plan for needs at discharge.
Plan: Discharge plans will depend on the patient's progress.
[2024-05-14 15:50] VITALS: BP 141/81
[2024-05-14 16:40] VITALS: BP 141/81; PULSE 68; O2SAT 93
[2024-05-14 16:46] VITALS: BP 141/81; PULSE 68; O2SAT 93
[2024-05-14] MEDS: LOVENOX 40 MG SC (17:39)
[2024-05-14] MEDS: LAMICTAL 300 MG PO (22:19)
[2024-05-14] MEDS: KLONOPIN 0.5 MG PO (22:19)
[2024-05-14] MEDS: CYMBALTA DELAYED RELEASE 30 MG PO (22:19)
[2024-05-14] MEDS: COLACE 200 MG PO (22:20)
[2024-05-14] MEDS: SENOKOT 17.2 MG PO (22:20)
[2024-05-14 23:35] VITALS: BP 116/55
[2024-05-15] MEDS: SYNTHROID 125 MCG PO (05:41)
[2024-05-15 07:35] VITALS: BP 98/38
--- NOTE | 2024-05-15 08:47 | W.PN.UPDATE ---
Addendum entered and electronically signed by Martin Galeano MD 05/15/24 17:33:
Patient seen and examined. Admitted for increased pain following TKR. US negative for DVT. Xray shows nondisplaced proximal fibular head fracture likely secondary to realignment and capsular avulsion injury. This is not the location that she
complains of pain. No signs of infection. Incision healing well. No drainage. Ecchymosis as expected. Thigh tender but soft. No signs of compartment syndrome. ROM is 0-90 degrees which is very good. Pain with ROM as expected. If patient is
not safe for ambulation, would likely benefit from acute rehab. I reassured the patient and her that her knee looks as expected at this time. Will follow.
Original Note:
Update Note
Progress Note Update
Status post left total knee arthroplasty May 02, [address] Galeano. Unfortunately in the past few days she has experienced increased left knee pain. She denies any injuries but it is difficult for her to bear weight. X-rays on admission show
stable appearing total knee arthroplasty with questionable nondisplaced avulsion fracture proximal fibular head. She is afebrile but WBC has trended up to 15.0 today. Her left knee exam has skin clips in place. Extensive ecchymosis over the
anterior aspect of the knee. No warmth or erythema noted. Generalized pain over the medial arthrotomy. Small to moderate effusion noted. Passive motion 0 to 100 degrees without pain or instability. Calf is soft and nontender. She is able to
flex and extend the knee but it is very difficult secondary to pain. Distal neurovascular was intact. After examining patient I see no signs of infection and radiographically joint replacement looks great. There is a questionable nondisplaced
fracture over the fibular head but no pain in this vicinity. Dr. Foreman evaluated patient yesterday and did not have any concerns. He did order low profile hinged knee brace. I suspect patient has a lot of inflammation which is causing her pain
and hindering her ability to progress with physical therapy. She has not been icing her knee so suggest ice 20 minutes multiple times throughout the day. She may progress with physical therapy as tolerated. She certainly can use pain medication
to help offset her pain. It would be nice if she could be on an anti-inflammatory to decrease pain but since she is on Lovenox I am not sure that this is option. Again left knee no signs of infection but uptick in WBC so wondering if there may be
an alternative source to account for this? Orthopedics will continue to follow.
[2024-05-15 08:50] VITALS: BP 123/58
[2024-05-15] MEDS: LIPITOR 20 MG PO (08:53)
[2024-05-15] MEDS: IMDUR (EXTENDED RELEASE) 30 MG PO (08:53)
[2024-05-15] MEDS: LAMICTAL 50 MG PO ×2 (08:53→16:40)
[2024-05-15] MEDS: CALAN EXTENDED RELEASE 360 MG PO (08:53)
[2024-05-15] MEDS: CYMBALTA DELAYED RELEASE 60 MG PO (08:54)
[2024-05-15] MEDS: ZESTRIL 10 MG PO (08:54)
--- NOTE | 2024-05-15 09:50 | W.PN.HOSP.TC ---
Today's Communication/Plan
-
d/c
Assessment / Plan
Assessment / Plan
Gen: NAD, AAOx3.
Eyes: EOMI, PERRLA, no scleral icterus.
Neck: supple.
CV: remains RRR, +S1/S2, no m/r/g.
Resp: remains CTAB, no rales, wheezes, or rhonchi.
Abd: +BS, soft, NT, ND
Skin: No rashes.
MSK: L knee with soft tissue edema. Operative incision with xiao in place and no discharge.
Neuro: CN 2-12 intact, non-focal.
Psych: Normal mood and affect.
L Knee x-ray: Status post left total knee replacement which appears in satisfactory position. Subtle lucency involving the left fibular head, suggesting nondisplaced fracture. Subcutaneous edema is present.
LLE US: No sonographic evidence for LEFT lower extremity deep venous thrombosis.
L fibular head nondisplaced fracture:
-underlying OA
-s/p Left knee TKA with Dr. Galeano 05/02/2024
-ortho following, recs ice/elevation/pain control
-discussed with Ortho over [employer] today
-PT/OT/CM
Other problems:
Leukocytosis: Likely reactive. Patient afebrile. As per discussion with orthopedics no sign of septic joint.
Essential hypertension: continue lisinopril and verapamil
Hyperlipidemia: Cont statin
Hypothyroidism: continue levothyroxine
Depression/anxiety: continue Cymbalta, clonazepam and lamotrigine
FULL/Lovenox
Patient remains medically cleared for discharge. Case management aware (updated at 1029 via [employer]).
Anticipated Discharge: Today
Subjective/Interval History
-
Date of Service: May 15, 2024
No new complaints.
Objective Data
-
Vital Signs:
Vital Signs
Temp Pulse Resp BP Pulse Ox
98.2 F 75 18 123/58 94
05/15/24 07:35 05/15/24 08:54 05/15/24 08:50 05/15/24 08:54 05/15/24 07:35
I&O
05/14/24 05/15/24 05/16/24
06:59 06:59 06:59
Intake Total 920 / 920
Output Total 650 / 650
Balance -650 / -650 920 / 920
--- NOTE | 2024-05-15 09:55 | CM ---
Addendum entered by Oksana Eid RN 05/15/24 14:16:
CM spoke with the patient, spouse at the bedside and daughter on speaker phone. They all were under impression that the pain the patient is experiencing is related to a hematoma. Spouse requested to speak with the attending. TT to attending
regarding the spouse would like an update on clinical picture of patient. Spouse upset that the patient is under observational status and not inpatient. Explained at this time patient does not meet for inpatient status. Explained that if patient
went to SNF/rehab it would be under private pay at approximately $500/day. Referral sent to [facility] for evaluation.
Original Note:
Received late night TT that the patient's spouse would like to speak with CM. Spoke with the patient's spouse. He would prefer to speak in person this afternoon. CM information provided. CM continues to be available to patient/family and is
monitoring medical plan for needs at discharge.
Plan: Discharge plan will need to be home with [facility] services or SNF/rehab which unfortunately would be private pay.
[2024-05-15 12:42] VITALS: BP 99/42; BP 99/43; PULSE 72; PULSE 76; O2SAT 91
[2024-05-15 12:54] VITALS: BP 99/42; BP 99/43; PULSE 72; PULSE 78; O2SAT 91
[2024-05-15 15:48] VITALS: BP 97/38
[2024-05-15] MEDS: LOVENOX 40 MG SC (16:40)
[2024-05-15] MEDS: LAMICTAL 300 MG PO (22:22)
[2024-05-15] MEDS: COLACE 200 MG PO (22:22)
[2024-05-15] MEDS: CYMBALTA DELAYED RELEASE 30 MG PO (22:22)
[2024-05-15] MEDS: SENOKOT 17.2 MG PO (22:22)
[2024-05-15] MEDS: ROXICODONE 5 MG PO (22:25)
[2024-05-15] MEDS: KLONOPIN 0.5 MG PO (22:25)
[2024-05-15 23:48] VITALS: BP 111/45
[2024-05-16] MEDS: SYNTHROID 125 MCG PO (05:10)
[2024-05-16] MEDS: ROXICODONE 5 MG PO ×3 (05:10→20:12)
--- NOTE | 2024-05-16 08:21 | W.PN.UPDATE ---
Update Note
Progress Note Update
Patient continues with left knee pain. She attempted to participate in physical therapy but it was difficult. She continues to ice as recommended. Left knee incision was clean, dry and intact. Incision was cleaned with alcohol and Betadine.
Skin clips were removed. Steri-Strips were applied. Ecchymosis noted. No warmth or erythema noted. Generalized pain over the anterior aspect of her knee. Passive motion 0 to 90 degrees without pain. Calf is soft and nontender. Dr. Galeano had
an opportunity to evaluate patient yesterday and talk to and . Unfortunately patient is experiencing more postop pain so recommendations are for her to go to rehab. She and her were hoping to go to [facility] for rehab. Await
insurance approval. I have also encouraged patient to continue with icing more frequently and instead of doing oxycodone every 8 hours try every 4-6 hours instead.
--- NOTE | 2024-05-16 08:21 | W.PN.HOSP.TC ---
Today's Communication/Plan
-
see bold
Assessment / Plan
Assessment / Plan
Gen: NAD, AAOx3.
Eyes: EOMI, PERRLA, no scleral icterus.
Neck: supple.
CV: continues to remain RRR, +S1/S2, no m/r/g.
Resp: continues to remain CTAB, no rales, wheezes, or rhonchi.
Abd: +BS, soft, NT, ND
Skin: No rashes.
MSK: L knee with C/D/I dressing
Neuro: CN 2-12 intact, non-focal.
Psych: Normal mood and affect.
L Knee x-ray: Status post left total knee replacement which appears in satisfactory position. Subtle lucency involving the left fibular head, suggesting nondisplaced fracture. Subcutaneous edema is present.
LLE US: No sonographic evidence for LEFT lower extremity deep venous thrombosis.
L fibular head nondisplaced fracture:
-underlying OA
-s/p Left knee TKA with Dr. Galeano 05/02/2024
-ortho following, recs ice/elevation/pain control
-PT/OT/CM
Other problems:
Leukocytosis: Likely reactive. Patient afebrile. As per discussion with orthopedics no sign of septic joint. No resolved
Essential hypertension: continue lisinopril and verapamil
Hyperlipidemia: Cont statin
Hypothyroidism: continue levothyroxine
Depression/anxiety: continue Cymbalta, clonazepam and lamotrigine
FULL/Lovenox
Patient continues to remain medically cleared for discharge. Case management aware. Discussed with Tina Eid and Maite Aragon.
Anticipated Discharge: Today
Subjective/Interval History
-
Date of Service: May 16, 2024
No new complaints.
Objective Data
-
Vital Signs:
Vital Signs
Temp Pulse Resp BP Pulse Ox
100.0 F 67 16 111/45 100
05/15/24 23:48 05/15/24 23:48 05/15/24 23:48 05/15/24 23:48 05/15/24 23:48
I&O
05/15/24 05/16/24 05/17/24
06:59 06:59 06:59
Intake Total 920 / 920 840 / 840
Balance 920 / 920 840 / 840
[2024-05-16 08:25] VITALS: BP 107/39
[2024-05-16 08:50] LABS: Hemoglobin 9.2 g/dL (12.0-16.0); Mean Corp Hgb Conc. 34.1 g/dL (33.0-37.0); Mean Corpuscular Hgb 32.7 pg (27.0-31.0); Mean Corpuscular Volume 96.1 fL (81.0-99.0); Platelet Count 314 10^3/uL (130-400); Red Blood Cell Count 2.81 10^6/uL (4.20-5.40); Red Cell Dist. Width 13.4 % (11.5-14.5); White Blood Cell Count 9.3 10^3/uL (4.8-10.8)
[2024-05-16 09:04] LABS: Blood Urea Nitrogen 16 mg/dl (7-17); Calcium 8.9 mg/dl (8.4-10.2); Carbon Dioxide 33 mmol/L (22-30); Chloride 104 mmol/L (98-107); Estimated Creatinine Clearance 43 ml/min; Glucose 95 mg/dl (70-99); Sodium 139 mmol/L (135-145); eGFR > 60.00
[2024-05-16] MEDS: CALAN EXTENDED RELEASE 360 MG PO (09:27)
[2024-05-16] MEDS: CYMBALTA DELAYED RELEASE 60 MG PO (09:27)
[2024-05-16] MEDS: LAMICTAL 50 MG PO ×2 (09:28→18:15)
[2024-05-16] MEDS: LIPITOR 20 MG PO (09:29)
[2024-05-16] MEDS: ZESTRIL 10 MG PO (09:29)
[2024-05-16] MEDS: IMDUR (EXTENDED RELEASE) 30 MG PO (09:30)
[2024-05-16 15:10] VITALS: BP 86/37
[2024-05-16 15:20] VITALS: BP 105/40; O2SAT 95
[2024-05-16 15:24] VITALS: BP 105/40; PULSE 70; O2SAT 92
--- NOTE | 2024-05-16 16:23 | CM ---
Reviewed the chart notes and had a long conversation with spouse regarding observational status. Patient's spouse was under impression that CM decided on obs vs inpatient status. Explained to the spouse that CM can not write orders for any
patient, that it comes from the physicians. Patient's spouse agreeable for a referral to be sent to [facility] for SNF/rehab on private pay. Referral sent. If [facility] not able to accept the patient, spouse agreeable to any facility with
private room. Did explain to the spouse that with private pay, some facilities require a months payment in advance and for financial information to be completed for the business office of the SNF. CM continues to be available to patient/family and
is monitoring medical plan for needs at discharge.
Plan: Discharge to SNF/rehab on private pay once bed secured.
[2024-05-16] MEDS: LOVENOX 40 MG SC (18:16)
--- NOTE | 2024-05-16 18:26 | PTCARENOTE ---
knee immobilizer obtained. This RN applied brace w/ assistance.
[2024-05-16] MEDS: KLONOPIN 0.5 MG PO (21:31)
[2024-05-16] MEDS: CYMBALTA DELAYED RELEASE 30 MG PO (21:31)
[2024-05-16] MEDS: LAMICTAL 300 MG PO (21:31)
[2024-05-16] MEDS: COLACE 200 MG PO (21:32)
[2024-05-16] MEDS: SENOKOT 17.2 MG PO (21:32)
[2024-05-16 23:40] VITALS: BP 104/46
[2024-05-17] MEDS: ROXICODONE 5 MG PO ×3 (01:22→19:54)
[2024-05-17] MEDS: SYNTHROID 125 MCG PO (05:54)
[2024-05-17 07:50] VITALS: BP 101/73
[2024-05-17] MEDS: CALAN EXTENDED RELEASE 360 MG PO (08:48)
[2024-05-17] MEDS: IMDUR (EXTENDED RELEASE) 30 MG PO (08:51)
[2024-05-17] MEDS: LIPITOR 20 MG PO (08:51)
[2024-05-17] MEDS: LAMICTAL 50 MG PO ×2 (08:51→18:03)
[2024-05-17] MEDS: CYMBALTA DELAYED RELEASE 60 MG PO (08:51)
[2024-05-17] MEDS: ZESTRIL 10 MG PO (08:52)
[2024-05-17 08:56] VITALS: BP 138/60
--- NOTE | 2024-05-17 10:16 | W.PN.HOSP.TC ---
Today's Communication/Plan
-
see bold
Assessment / Plan
Assessment / Plan
Gen: NAD, Awake and alert, NCAT
Eyes: EOMI, PERRLA, no scleral icterus.
Neck: supple.
CV: RRR, +S1/S2, no m/r/g.
Resp: CTAB anteriorly, no rales, wheezes, or rhonchi.
Abd: remains +BS, soft, NT, ND
Skin: No rashes.
MSK: L knee with C/D/I dressing
Neuro: CN 2-12 intact, non-focal.
Psych: Normal mood and affect.
L Knee x-ray: Status post left total knee replacement which appears in satisfactory position. Subtle lucency involving the left fibular head, suggesting nondisplaced fracture. Subcutaneous edema is present.
LLE US: No sonographic evidence for LEFT lower extremity deep venous thrombosis.
L fibular head nondisplaced fracture:
-underlying OA
-s/p Left knee TKA with Dr. Galeano 05/02/2024
-ortho following, recs ice/elevation/pain control
-PT/OT/CM
Other problems:
Leukocytosis: Likely reactive. Patient afebrile. As per discussion with orthopedics no sign of septic joint. No resolved
Essential hypertension: continue lisinopril and verapamil
Hyperlipidemia: Cont statin
Hypothyroidism: continue levothyroxine
Depression/anxiety: continue Cymbalta, clonazepam and lamotrigine
FULL/Lovenox
Patient continues to remain medically cleared for discharge since 05/14/24. Case management aware. Discussed with Tina Eid and Maite Aragon.
Anticipated Discharge: Today
Subjective/Interval History
-
Date of Service: May 17, 2024
No new complaints.
Objective Data
-
Vital Signs:
Vital Signs
Temp Pulse Resp BP Pulse Ox
98.7 F 78 16 138/60 94
05/17/24 07:50 05/17/24 07:50 05/17/24 07:50 05/17/24 08:56 05/17/24 07:50
I&O
05/16/24 05/17/24 05/18/24
06:59 06:59 06:59
Intake Total 840 / 840 600 / 600
Balance 840 / 840 600 / 600
--- NOTE | 2024-05-17 10:40 | CM ---
Addendum entered by Oksana Eid RN 05/17/24 11:21:
Spouse will provide transportation to facility tomorrow.
Original Note:
Reviewed the chart notes and spoke with Roberta from [facility]. They are able to take AFTER 3:30PM tomorrow (Monday). Covid screen will be required, attending notified. CM continues to be available to patient/family and is monitoring medical
plan for needs at discharge.
Plan: Discharge to [facility] Monday AFTER 3:30PM.
Call report to: [phone]
Fax report to: [phone]
--- NOTE | 2024-05-17 12:37 | W.PN.UPDATE ---
Update Note
Progress Note Update
Patient seen on a.m. rounds. She reports some improvement with the ice treatment plan that was recommended yesterday. Nursing reports issues with supply regarding the low-profile hinged knee brace that is ordered and only have a knee immobilizer
available.
Knee range of motion 10 to 100 degrees with soft endpoint but subjective discomfort.
Pending case management for disposition but plan for acute rehab at [facility] [place]. Will clarify orders regarding his knee brace and availability with anticipated discharge 05/18.
[2024-05-17 14:58] VITALS: BP 99/41; PULSE 68; O2SAT 91
[2024-05-17 15:06] VITALS: BP 99/41; PULSE 67; O2SAT 91
--- NOTE | 2024-05-17 15:30 | W.PN.UPDATE ---
Update Note
Progress Note Update
Patient seen and examined. Sitting in chair. VSS. LLE: [place] out and steri strips reapplied. Ecchymosis as expected. No signs of infection. Calf and thigh soft. ROM 0-85 degrees. Needs minimal help with SLR. Able to actively extend.
Impression: S/P L TKR and slow to progress secondary to pain. Xrays with proximal fibula avulsion fracture but not tender over proximal fibula. Recommend rehab. Going to [facility] tomorrow for inpatient rehab. May wear knee immobilizer for WB
as needed. Knee immobilizer not to be on when not ambulatory and only to be used when ambulatory as needed. Follow up in the office in 2 weeks
[2024-05-17 15:35] VITALS: BP 98/43
[2024-05-17] MEDS: LOVENOX 40 MG SC (18:04)
[2024-05-17] MEDS: KLONOPIN 0.5 MG PO (22:40)
[2024-05-17] MEDS: COLACE 200 MG PO (22:40)
[2024-05-17] MEDS: CYMBALTA DELAYED RELEASE 30 MG PO (22:40)
[2024-05-17] MEDS: LAMICTAL 300 MG PO (22:40)
[2024-05-17] MEDS: SENOKOT 17.2 MG PO (22:40)
[2024-05-17 23:20] VITALS: BP 121/54
[2024-05-18] MEDS: ROXICODONE 5 MG PO ×2 (03:53→13:56)
[2024-05-18] MEDS: SYNTHROID 125 MCG PO (06:16)
[2024-05-18 07:00] VITALS: BP 148/52
[2024-05-18 07:41] LABS: COVID-19 Antigen Negative (Negative)
[2024-05-18] MEDS: CYMBALTA DELAYED RELEASE 60 MG PO (08:28)
[2024-05-18] MEDS: LAMICTAL 50 MG PO (08:28)
[2024-05-18] MEDS: CALAN EXTENDED RELEASE 360 MG PO (08:28)
[2024-05-18] MEDS: IMDUR (EXTENDED RELEASE) 30 MG PO (08:29)
[2024-05-18] MEDS: ZESTRIL 10 MG PO (08:29)
[2024-05-18] MEDS: LIPITOR 20 MG PO (08:29)
--- NOTE | 2024-05-18 08:34 | W.PN.HOSP.TC ---
Today's Communication/Plan
-
d/c
Assessment / Plan
Assessment / Plan
Gen: NAD, Awake and alert, NCAT
Eyes: EOMI, PERRLA, no scleral icterus.
Neck: supple.
CV: remains RRR, +S1/S2, no m/r/g.
Resp: remains CTAB anteriorly, no rales, wheezes, or rhonchi.
Abd: continues to remain +BS, soft, NT, ND
Skin: No rashes.
Neuro: CN 2-12 intact, non-focal.
Psych: Normal mood and affect.
L Knee x-ray: Status post left total knee replacement which appears in satisfactory position. Subtle lucency involving the left fibular head, suggesting nondisplaced fracture. Subcutaneous edema is present.
LLE US: No sonographic evidence for LEFT lower extremity deep venous thrombosis.
L fibular head nondisplaced fracture:
-underlying OA
-s/p Left knee TKA with Dr. Galeano 05/02/2024
-ortho following, recs ice/elevation/pain control. Knee immobilizer only when ambulating.
-PT/OT/CM
Other problems:
Leukocytosis: Likely reactive. Patient afebrile. As per discussion with orthopedics no sign of septic joint. No resolved
Essential hypertension: continue lisinopril and verapamil
Hyperlipidemia: Cont statin
Hypothyroidism: continue levothyroxine
Depression/anxiety: continue Cymbalta, clonazepam and lamotrigine
FULL/Lovenox
Patient continues to remain medically cleared for discharge since 05/14/24. Case management aware.
Anticipated Discharge: Today
Subjective/Interval History
-
Date of Service: May 18, 2024
No new complaints.
Objective Data
-
Vital Signs:
Vital Signs
Temp Pulse Resp BP Pulse Ox
98.0 F 92 18 148/52 95
05/18/24 07:00 05/18/24 08:29 05/18/24 07:00 05/18/24 08:29 05/18/24 07:00
I&O
05/17/24 05/18/24 05/19/24
06:59 06:59 06:59
Intake Total 600 / 600 660 / 660
Balance 600 / 600 660 / 660
--- NOTE | 2024-05-18 09:54 | CM ---
Addendum entered by Ange Payton 05/18/24 13:03:
patient nursing indicated patient concerned about transfer and requested ambulance, as did patient. CM completed forms and sent to floor for ambulance request.
Addendum entered by Ange Payton 05/18/24 11:17:
Plan: Discharge to [facility] Monday AFTER 3:30PM.
Call report to: [phone]
Fax report to: [phone]
Original Note:
Patient for discharge after 3:30 pm. CM updated physician. Patient for transfer via spouse. CM will continue to follow for discharge planning needs.
Plan; transfer to [facility] home.
[2024-05-18 10:36] VITALS: BP 81/40
--- NOTE | 2024-05-18 14:05 | W.DCSUMMARY ---
Discharge Summary
Discharge Data
Date of Admission: 05/13/24
Date of Discharge: 05/18/24
-
Pending Results: No
Hospital Course
Primary diagnoses:
Ambulatory dysfunction due to postoperative pain related to left knee total knee arthroplasty
Secondary diagnoses:
Left knee TKA with Dr. Galeano 05/02/2024
Leukocytosis, likely reactive
Osteoarthritis
Essential hypertension
Hyperlipidemia
Hypothyroidism
Depression
Anxiety
Consultants:
Orthopedics
Imaging:
L Knee x-ray: Status post left total knee replacement which appears in satisfactory position. Subtle lucency involving the left fibular head, suggesting nondisplaced fracture. Subcutaneous edema is present.
LLE US: No sonographic evidence for LEFT lower extremity deep venous thrombosis.
Hospital course: 84-year-old female who presented with a chief complaint of left knee pain as outlined in H&P done on admission.
L fibular head nondisplaced fracture: The patient had underwent Left knee TKA with Dr. Galeano 05/02/2024. She presented with ambulatory dysfunction due to postoperative pain related to left knee total knee arthroplasty. The patient was seen by
orthopedics while hospitalized. They recommended recs ice/elevation/pain control. Knee immobilizer only when ambulating. Patient was also seen by physical therapy and Occupational Therapy. She is being discharged to [facility]
facility.
Discharge Plan
-
Patient Disposition: [facility]NF
Discharge Diagnosis/Procedures: Ambulatory dysfunction due to postoperative pain related to left knee total knee arthroplasty
Condition: Good
Diet: Regular
Activity: As tolerated and With Walker
Additional Activity: Knee immobilizer only to be used with ambulation
Driving Restrictions: No driving
Bathing Restrictions: OK to Shower
Referrals:
Martin Galeano MD [Active] - (f/u 2-[address] Galeano from discharge date)
Jero Frazier MD [Family Provider] - in less than 1 week
Prescriptions:
New
clonazepam 0.5 mg Tablet
0.5 mg PO HS Qty: 2 0RF
oxycodone 5 mg Tablet
5 mg PO Q4HPRN PRN (Reason: moderate pain) Qty: 5 0RF
Continued
albuterol sulfate 90 mcg/actuation Hfa Aerosol Inhaler
2 puff INHALATION R Q6HPRN PRN (Reason: asthma)
lamotrigine [Lamictal] 150 mg Tablet
300 mg PO HS
atorvastatin [Lipitor] 20 mg Tablet
20 mg PO DAILY
verapamil 360 mg Capsule,Ext Rel. Pellets 24 Hr
360 mg PO DAILY
lamotrigine [Lamictal] 25 mg Tablet
50 mg PO BID
levothyroxine [Synthroid] 125 mcg Tablet
125 mcg PO DAILY
duloxetine [Cymbalta] 30 mg Capsule,Delayed Release(Dr/Ec)
30 mg PO HS
duloxetine [Cymbalta] 60 mg Capsule,Delayed Release(Dr/Ec)
60 mg PO DAILY
isosorbide mononitrate 30 MG tablet extended release 24 hr
30 mg PO DAILY Qty: 30 11RF
Rx Instructions:
HOLD IF systolic blood pressure <120 while on post-surgical narcotics.
lisinopril 10 mg Tablet
10 mg PO DAILY Qty: 1 0RF
Rx Instructions:
HOLD IF systolic blood pressure <130 while on post-surgical pain meds.
aspirin 81 mg Tablet,Delayed Release (Dr/Ec)
81 mg PO DAILY
magnesium citrate 100 mg Capsule
500 mg PO HS
sennosides [Tracey-bjorn] 8.6 mg tablet
17.2 mg PO HS
magnesium hydroxide [Milk of Magnesia] 400 mg/5 mL suspension
15 ml PO HS PRN (Reason: Constipation)
docusate sodium 100 mg capsule
200 mg PO HS
Discontinued
clonazepam 1 mg Tablet
0.5 mg PO HS
ibuprofen [Advil] 200 mg Tablet
400 mg PO Q6HPRN PRN (Reason: mild pain)
oxycodone 5 mg Tablet
5 mg PO Q6HPRN PRN (Reason: severe pain)
Discharge Orders:
Discharge Patient (As Directed); Ordered 05/18/24
Ordered By: Frederick Marcelo
Discharge Date and Time
Print Language: INDIAN
[2024-05-18 15:00] VITALS: BP 121/48
== END 2024-05-18 15:50 ==
LOC: 2 SOUTH 21:00
PROVIDERS: Emergency Medicine; Nurse Practitioner Family; ADMITTING PHYSICIAN Internal Medicine; ATTENDING PHYSICIAN Internal Medicine; EMERGENCY PHYSICIAN Emergency Medicine; FAMILY PHYSICIAN Internal Medicine
DX: G89.18 Other acute postprocedural pain (principal); M25.562 Pain in left knee; Z96.652 Presence of left artificial knee joint; M17.12 Unilateral primary osteoarthritis, left knee; I10 Essential (primary) hypertension; Z79.82 Long term (current) use of aspirin; E78.5 Hyperlipidemia, unspecified; E03.9 Hypothyroidism, unspecified; F32.A Depression, unspecified; F41.9 Anxiety disorder, unspecified
CPT/HCPCS: 73564; 80048; 80053; 85025; 85027; 87811; 93971; 96374; 97110; 97116; 97163; 97167; 97530; 97535; 99285; G0378

== ENCOUNTER 2024-08-03 19:25 | Emergency (ER) | payer MEDICARE, OTHER, SELFPAY ==
[2024-08-03 19:28] VITALS: BP 139/62
[2024-08-03 19:34] VITALS: BMI 22.6
--- NOTE | 2024-08-03 23:25 | ED.GENMED ---
History of Present Illness
General
Chief Complaint: Head Injury
Source: patient
Exam Limitations: none
Time Seen by Provider: 08/03/24 19:38
Nursing documentation reviewed up to this point in time: agreed with
History of Present Illness
History of Present Illness:
Patient states she was walking with her walker and a stick and lost her balance. Hit back of head on a pointed shelf. No LOC. Has lac to posterior scalp. 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
Past History
Past History
ED Past Medical History: Asthma, HTN, Hypothyroidism, Psychiatric (Anxiety, depression) and Other (MigrainesUTI)
ED Past Surgical History: Cardiac (neg cath 2019 for sig CAD) and Orthopedic (Left knee meniscus , Bunionectomy, Hammertoe repair)
Social History
Tobacco: Non-smoker
Alcohol: None
Drug: None
Personal:
Living: with family
Employment: Retired
Family History
Family History: Hypertension
Review of Systems
Review of Systems
Allergies reviewed?: Yes
All Other Systems: ROS reviewed and negative except as documented in HPI and ROS
Constitutional: Reports no symptoms
EENT: Reports no symptoms
Respiratory: Reports no symptoms
Cardiac: Reports no symptoms
ABD/GI: Reports no symptoms
: Reports no symptoms
Musculoskeletal: Reports no symptoms
Skin: Reports other (laceration to posterior scalp)
Neurological: Reports no symptoms
Psychiatric: Reports no symptoms
Phy Exam
General Physical Exam
General Presentation: well appearing and no apparent distress
General age: appears stated age
General Skin: warm and dry
General Habitus: normal
Eye Exam
Eye Exam: PERRL and EOMI
Neurological Exam
Neurological Exam: alert, oriented x3, CN II-XII intact, no motor deficits, no sensory deficits and speech normal
Musculoskeletal Exam
Musculoskeletal Exam: full ROM and neuro vasc intact
Skin Exam
Skin Exam: normal color, warm/dry and other (Laceration to posterior scalp.)
Psychiatric Exam
Psychiatric Exam: normal mood/affect
Course
Orders/Labs/Results
Orders:
Orders
08/03/24 20:14
CT Head W/o Iv Contrast Urgent
Comment:
Reason For Exam: trauma
Vital Signs
Initial and Last Documented VS:
Initial Vital Signs
Temp Pulse Resp BP Pulse Ox
98.6 F 80 16 139/62 96
08/03/24 19:28 08/03/24 19:28 08/03/24 19:28 08/03/24 19:28 08/03/24 19:28
Last Documented Vital Signs
Temp Pulse Resp BP Pulse Ox
98.6 F 72 16 132/62 96
08/03/24 19:28 08/03/24 23:30 08/03/24 19:28 08/03/24 23:30 08/03/24 23:30
Procedures
Laceration Closure
Posterior Scalp:
Status of Wound: clean
Description of Wound Edges: sharp
Preparation: cleaned with saline
Revision/Debridement: routine- no revision
Wound exploration: explored to base- no FB
Type of Closure: Dermabond-skin glue
*Radiology
Radiology exam reviewed: radiology read reviewed
*Pulse Oximetry
SaO2: 96
Oxygen Mode of Delivery: Room air
Patient hypoxic: no
*Critical Care Note
Total Time (30-74mins, 75-104mins- exclusive of procedures): Not Applicable
Update Note
Update Note:
Patient to ED after falling back and hitting head on a pointed shelf. No LOC. Laceration to posterior scalp. WOund cleansed withtNSS, no active bleeding. Closed with dermabond. CT of head without acute findings. Full nonpainful ROM to
head/neck, upper and lower extremities. Will discharge home and she will follow up with PCP. Given instructions on s/s to return o ED and patient is agreeable to plan.
ED Attending Note
-
Portions of this chart may have been created with voice recognition software.� Occasional wrong word or��sound alike� substitutions may have occurred due to the inherent limitations of voice recognition software.
Discharge Plan
Departure
Patient Disposition: Home (Routine Discharge)
Date of Disposition: 08/03/24
Time of Disposition: 23:31
Patient with high blood pressure during this ER visit?: No
Condition: Good
Covid-19: Not Applicable
Discharge Problem:
Head injury
Instructions: Laceration Repair With Glue (DC), Head Injury in Adults (DC), Contusion (DC)
Prescriptions:
No Action
albuterol sulfate 90 mcg/actuation Hfa Aerosol Inhaler
2 puff INHALATION R Q6HPRN PRN (Reason: asthma)
lamotrigine [Lamictal] 150 mg Tablet
300 mg PO HS
atorvastatin [Lipitor] 20 mg Tablet
20 mg PO DAILY
verapamil 360 mg Capsule,Ext Rel. Pellets 24 Hr
360 mg PO DAILY
lamotrigine [Lamictal] 25 mg Tablet
50 mg PO BID
levothyroxine [Synthroid] 125 mcg Tablet
125 mcg PO DAILY
duloxetine [Cymbalta] 30 mg Capsule,Delayed Release(Dr/Ec)
30 mg PO HS
duloxetine [Cymbalta] 60 mg Capsule,Delayed Release(Dr/Ec)
60 mg PO DAILY
isosorbide mononitrate 30 MG tablet extended release 24 hr
30 mg PO DAILY Qty: 30 11RF
Rx Instructions:
HOLD IF systolic blood pressure <120 while on post-surgical narcotics.
lisinopril 10 mg Tablet
10 mg PO DAILY Qty: 1 0RF
Rx Instructions:
HOLD IF systolic blood pressure <130 while on post-surgical pain meds.
aspirin 81 mg Tablet,Delayed Release (Dr/Ec)
81 mg PO DAILY
magnesium citrate 100 mg Capsule
500 mg PO HS
sennosides [Tracey-bjorn] 8.6 mg tablet
17.2 mg PO HS
magnesium hydroxide [Milk of Magnesia] 400 mg/5 mL suspension
15 ml PO HS PRN (Reason: Constipation)
docusate sodium 100 mg capsule
200 mg PO HS
clonazepam 0.5 mg Tablet
0.5 mg PO HS Qty: 2 0RF
oxycodone 5 mg Tablet
5 mg PO Q4HPRN PRN (Reason: moderate pain) Qty: 5 0RF
Referrals:
Jero Frazier MD [Family Provider, Internal Medicine] - Follow up in 2-3 days
Interventions
Interventions:
*Risk Screen - Suicide Last Done: 08/03/24 19:28
*General Assessment Last Done: 08/03/24 19:28
*Neglect/Abuse Screening Last Done: 08/03/24 19:28
*ED- Fall Risk Assessment Last Done: 08/03/24 19:34
*ED COVID-19 Vaccine History Last Done: 08/03/24 19:34
*Nursing Disposition Last Done: 08/03/24 23:35
ED- Neurological Assessment Last Done: 08/03/24 19:34
ED-Skin Assessment Last Done: 08/03/24 19:34
Discharge Date and Time
Discharge Date/Time: 08/03/24 23:35
Print Language: SENEGALESE
Skin Exam
Laceration
Posterior Scalp:
Length in cm: 1.5
Orientation: diagonal
Type of Laceration: simple
Any active bleeding?: no active bleeding
Distal skin color and temperature: normal-warm & good color
Normal distal neurovascular exam: Yes
Range of motion: full
[2024-08-03 23:30] VITALS: BP 132/62
== END 2024-08-03 23:35 | disposition home or self-care (01) ==
LOC: EMR 19:25
PROVIDERS: EMERGENCY PHYSICIAN Emergency Medicine; FAMILY PHYSICIAN Internal Medicine
DX: S01.01XA Laceration without foreign body of scalp, initial encounter (principal); S09.90XA Unspecified injury of head, initial encounter; W19.XXXA Unspecified fall, initial encounter
CPT/HCPCS: 99285; 12001; 70450

== ENCOUNTER 2024-12-16 19:29 | Emergency (ER) | payer MEDICARE, OTHER, SELFPAY ==
[2024-12-16 19:30] VITALS: BP 142/47
[2024-12-16 19:33] VITALS: BP 142/47
--- NOTE | 2024-12-16 20:06 | ED.GENMED ---
History of Present Illness
General
Chief Complaint: Fall
Time Seen by Provider: 12/16/24 19:57
History of Present Illness
History of Present Illness:
84-year-old female presents to the emergency department for evaluation after a mechanical fall. She was attempting to ambulate out of her house when she lost her balance. She typically requires walker use due to her chronic ambulatory dysfunction.
She fell backward and struck her head on the ground, denies LOC. Reports a minor headache at this time. Does not take anticoagulants. No vision changes or neck pain. No extremity paresthesias
Past History
Past History
ED Past Medical History: Asthma, HTN, Hypothyroidism, Psychiatric (Anxiety, depression) and Other (MigrainesUTI)
ED Past Surgical History: Cardiac (neg cath 2019 for sig CAD) and Orthopedic (Left knee meniscus , Bunionectomy, Hammertoe repair)
Social History
Tobacco: Non-smoker
Alcohol: None
Drug: None
Personal:
Living: with family
Employment: Retired
Family History
Family History: Hypertension
Review of Systems
Review of Systems
Allergies reviewed?: Yes
All Other Systems: ROS reviewed and negative except as documented in HPI and ROS
Phy Exam
Physical Exam
Physical Exam:
GEN: Well appearing, NAD, WDWN
Eyes: PERRLA, EOMs intact, no scleral icterus
HENT: Moderate-sized cephalohematoma to the left parietal scalp, no crepitus or open wounds, oral mucosa moist
Lungs: CTAB, no wheezes, rales, rhonchi, normal chest wall excursion
Cardiac: RRR, no M/R/G, no peripheral edema. Radial pulses 2+ bilat
Abdomen: S, NT, ND, NABS, no masses or hepatosplenomegaly
Neuro: AO x 3, no focal deficits to BUE/BLE, normal sensation throughout
MSK: No gross deformity or ecchymosis. No edema. No digital clubbing
Skin: No rashes, petechiae. Normal color, no pallor or jaundice.
Psych: Calm, cooperative, proper hygiene
Course
Orders/Labs/Results
Orders:
Orders
12/16/24 20:02
CT Head W/o Iv Contrast Urgent
Comment:
Reason For Exam: fall head injury
Vital Signs
Initial and Last Documented VS:
Initial Vital Signs
Temp Pulse Resp BP Pulse Ox
98.1 F 68 18 142/47 93
12/16/24 19:30 12/16/24 19:30 12/16/24 19:30 12/16/24 19:30 12/16/24 19:30
Last Documented Vital Signs
Temp Pulse Resp BP Pulse Ox
98.1 F 76 18 151/50 94
12/16/24 19:30 12/16/24 21:30 12/16/24 21:30 12/16/24 21:30 12/16/24 21:30
MDM/Problems Addressed
MDM/Problems Addressed:
CT of the head obtained due to advanced age with visible scalp hematoma to rule out intracranial hemorrhage or skull fracture and fortunately this was negative. Discharged in stable condition
*Pulse Oximetry
SaO2: 93
Oxygen Mode of Delivery: Room air
Patient hypoxic: no
*Critical Care Note
Total Time (30-74mins, 75-104mins- exclusive of procedures): Not Applicable
ED Attending Note
-
Portions of this chart may have been created with voice recognition software.� Occasional wrong word or��sound alike� substitutions may have occurred due to the inherent limitations of voice recognition software.
Discharge Plan
Departure
Patient Disposition: Home (Routine Discharge)
Date of Disposition: 12/16/24
Time of Disposition: 21:26
Patient with high blood pressure during this ER visit?: No
Discharge Problem:
Closed head injury
Instructions: Head Injury in Adults (DC)
Prescriptions:
No Action
albuterol sulfate 90 mcg/actuation Hfa Aerosol Inhaler
2 puff INHALATION R Q6HPRN PRN (Reason: asthma)
lamotrigine [Lamictal] 150 mg Tablet
300 mg PO HS
atorvastatin [Lipitor] 20 mg Tablet
20 mg PO DAILY
verapamil 360 mg Capsule,Ext Rel. Pellets 24 Hr
360 mg PO DAILY
lamotrigine [Lamictal] 25 mg Tablet
50 mg PO BID
levothyroxine [Synthroid] 125 mcg Tablet
125 mcg PO DAILY
duloxetine [Cymbalta] 30 mg Capsule,Delayed Release(Dr/Ec)
30 mg PO HS
duloxetine [Cymbalta] 60 mg Capsule,Delayed Release(Dr/Ec)
60 mg PO DAILY
isosorbide mononitrate 30 MG tablet extended release 24 hr
30 mg PO DAILY Qty: 30 11RF
Rx Instructions:
HOLD IF systolic blood pressure <120 while on post-surgical narcotics.
lisinopril 10 mg Tablet
10 mg PO DAILY Qty: 1 0RF
Rx Instructions:
HOLD IF systolic blood pressure <130 while on post-surgical pain meds.
aspirin 81 mg Tablet,Delayed Release (Dr/Ec)
81 mg PO DAILY
magnesium citrate 100 mg Capsule
500 mg PO HS
sennosides [Tracey-bjorn] 8.6 mg tablet
17.2 mg PO HS
magnesium hydroxide [Milk of Magnesia] 400 mg/5 mL suspension
15 ml PO HS PRN (Reason: Constipation)
docusate sodium 100 mg capsule
200 mg PO HS
clonazepam 0.5 mg Tablet
0.5 mg PO HS Qty: 2 0RF
oxycodone 5 mg Tablet
5 mg PO Q4HPRN PRN (Reason: moderate pain) Qty: 5 0RF
Referrals:
Jero Frazier MD [Family Provider, Internal Medicine]
Interventions
Interventions:
*Risk Screen - Suicide Last Done: 12/16/24 19:30
*General Assessment Last Done: 12/16/24 19:30
*Neglect/Abuse Screening Last Done: 12/16/24 19:30
*ED- Fall Risk Assessment Last Done: 12/16/24 20:00
*ED COVID-19 Vaccine History Last Done: 12/16/24 20:00
*ED Influenza Vaccine History Last Done: 12/16/24 20:00
*Nursing Disposition Last Done: 12/16/24 21:50
ED-Musculoskeletal Assessment Last Done: 12/16/24 20:00
ED- Neurological Assessment Last Done: 12/16/24 20:00
ED-Skin Assessment Last Done: 12/16/24 20:00
Discharge Date and Time
Discharge Date/Time: 12/16/24 21:51
Print Language: [email or web address]
[2024-12-16 21:30] VITALS: BP 151/50
== END 2024-12-16 21:51 | disposition home or self-care (01) ==
LOC: EMR 19:29
PROVIDERS: EMERGENCY PHYSICIAN Emergency Medicine; FAMILY PHYSICIAN Internal Medicine
DX: S09.90XA Unspecified injury of head, initial encounter (principal); I10 Essential (primary) hypertension; J45.909 Unspecified asthma, uncomplicated; E03.9 Hypothyroidism, unspecified; F41.9 Anxiety disorder, unspecified; F32.A Depression, unspecified; Z79.82 Long term (current) use of aspirin; Z82.49 Family history of ischemic heart disease and other diseases of the circulatory system; W01.198A Fall on same level from slipping, tripping and stumbling with subsequent striking against other object, initial encounter; Y92.008 Other place in unspecified non-institutional (private) residence as the place of occurrence of the external cause
CPT/HCPCS: 99284; 70450